=== PATIENT | female | born 1935 | race Caucasian/White ===

== ENCOUNTER 2016-05-27 21:05 | Emergency (ER) | payer MEDICARE ==
--- NOTE | 2016-05-27 22:01 | Emergency Department Record ---
History of Present Illness - General Chief Complaint: Cough Stated Complaint: COUGH Time Seen by Provider: 05/27/16 21:50 Source: Patient Mode of Arrival: Ambulatory - History of Present Illness Initial Comments: The patient was cough at the beginning of April of this year and had a chest xray. She got partially better, but then her cough returned 2 days ago along with one day of watery diarrhea, three episodes, today. She denies f,c, cp, ap , leg swelling. She has NOT had a flu shot this season. MD Complaint: Cough, Other (diarrhea) Onset/Timin -: Days(s) Severity: Moderate Severity scale (1-10): 8 Consistency: Intermittent - Related Data Home Medications Medication Instructions Recorded Confirmed Last Taken Carbamazepine [Tegretol] 100 mg PO DAILY #180 NS 04/20/16 05/27/16 05/26/16 Raloxifene HCl [Evista] 60 mg PO DAILY 05/27/16 05/27/16 05/26/16 Allergies Allergy/AdvReac Type Severity Reaction Status Date / Time No Known Drug Allergies Allergy Verified 05/27/16 21:20 Travel Screening - Travel/Exposure Within Last 30 Days Have you traveled within the last 30 days?: No - Travel/Exposure Within Last Year Have you traveled outside the [place] in the last year?: No - Additonal Travel Details Have you been exposed to anyone with a communicable illness?: No - Travel Symptoms Symptom Screening: None Review of Systems Reviewed: No additional complaints except as noted below Constitutional: Reports: As per HPI. Denies: Chills, Fever, Malaise, Night sweats, Weakness, Weight change Eyes: Reports: As per HPI. Denies: Eye discharge, Eye pain, Photophobia, Vision change ENT: Reports: As per HPI. Denies: Congestion, Dental pain, Ear pain, Epistaxis , Hearing loss, Throat pain Respiratory: Reports: As per HPI. Denies: Cough, Dyspnea, Hemoptysis, Stridor, Wheezes Cardiovascular: Reports: As per HPI. Denies: Arrhythmia, Chest pain, Dyspnea on exertion, Edema, Murmurs, Orthopnea, Palpitations, Paroxysmal nocturnal dyspnea, Rheumatic Fever, Syncope Endocrine: Reports: As per HPI. Denies: Fatigue, Heat or cold intolerance, Polydipsia, Polyuria Gastrointestinal: Reports: As per HPI. Denies: Abdominal pain, Constipation, Diarrhea, Hematemesis, Hematochezia, Melena, Nausea, Vomiting Genitourinary: Reports: As per HPI. Denies: Abnormal menses, Discharge, Dyspareunia, Dysuria, Frequency, Hematuria, Incontinence, Retention, Urgency Musculoskeletal: Reports: As per HPI. Denies: Arthralgia, Back pain, Gout, Joint swelling, Myalgia, Neck pain Skin: Reports: As per HPI. Denies: Bruising, Change in color, Change in hair/ nails, Lesions, Pruritus, Rash Neurological: Reports: As per HPI. Denies: Abnormal gait, Confusion, Headache, Numbness, Paresthesias, Seizure, Tingling, Tremors, Vertigo, Weakness Psychiatric: Reports: As per HPI. Denies: Anxiety, Auditory hallucinations, Depression, Homicidal thoughts, Suicidal thoughts, Visual hallucinations Hematological/Lymphatic: Reports: As per HPI. 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 - GI Hx GI Disorders: No - Hx Genitourinary Disorders: No - ENDOCRINE Hx Endocrine Disorders: No - MUSCULOSKELETAL Hx Musculoskeletal Disorders: Yes Hx Osteoporosis: Yes - PSYCH Hx Psych Problems: No - HEMATOLOGY/ONCOLOGY Hx Hematology/Oncology Disorders: No Family Medical History Any Significant Family History?: No Physical Exam - General General Appearance: Alert, Oriented x3, Cooperative, No acute distress - Head Head exam: Normal inspection - Eye Eye exam: Normal appearance, PERRL Pupils: Normal accommodation - ENT ENT exam: Normal exam, Mucous membranes moist, Normal external ear exam, Normal orophraynx, TM's normal bilaterally Ear exam: Normal external inspection. negative: External canal tenderness Nasal Exam: Normal inspection. negative: Discharge, Sinus tenderness Mouth exam: Normal external inspection, Tongue normal Teeth exam: Normal inspection. negative: Dental caries Throat exam: Normal inspection. negative: Tonsillar erythema, Tonsillar exudate - Neck Neck exam: Normal inspection, Full ROM. negative: Tenderness - Respiratory Respiratory exam: Normal lung sounds bilaterally, Rhonchi (coarse breath sounds with coghing episodes; ). negative: Respiratory distress - Cardiovascular Cardiovascular Exam: Regular rate, Normal rhythm, Normal heart sounds. negative : JVD - GI/Abdominal GI/Abdominal exam: Soft, Normal bowel sounds. negative: Tenderness - Rectal Rectal exam: Deferred - exam: Deferred - Extremities Extremities exam: Normal inspection, Full ROM, Normal capillary refill. negative: Calf tenderness, Pedal edema, Tenderness - Back Back exam: Reports: Normal inspection, Full ROM. Denies: Muscle spasm, Rash noted, Tenderness - Neurological Neurological exam: Alert, Normal gait, Oriented X3, Reflexes normal - Psychiatric Psychiatric exam: Normal affect, Normal mood - Skin Skin exam: Dry, Intact, Normal color, Warm Course Vital Signs 05/27/16 21:23 Temperature 98.5 F Pulse Rate 91 H Respiratory 20 Rate Blood Pressure 194/86 Pulse Ox 94 L - Reevaluation(s) Reevaluation #1: Reviewed old CXR report from 04-20-16 which showed no acute changes; chronic borderline CMG, tortuous aorta and linear scarring left lung base as before. Ca granuloma as before inferior right lung base. 05/27/16 22:12 Reevaluation #2: All studies normal, flu panel negative. CXR: Hyperinflation changes consistent with COPD changes, no acute abnormality, chronic unchanged granulomas as before. Per radiologist. 05/27/16 23:02 Medical Decision Making - Management Options MDM Management: No Additional Work-up Planned - Data Complexity MDM Data: Labs Ordered and/or Reviewed, X-Ray Ordered and/or Reviewed - Lab Data Result diagrams: 05/27/16 22:39 05/27/16 22:39 Disposition Disposition: Discharge Clinical Impression: Viral bronchitis Disposition: Home, Self-Care Condition: (1) Good Instructions: Cold Symptoms (ED) Additional Instructions: Vaporizer at bedside. Benadryl Elixir 25 mg to help with sleep at night if needed. Tylenol or ibuprofen as directed as needed for pain or fever. Throat lozenges, sprays and frequent sips of water during the day. Follow up with PCP next week as needed. Forms: Patient Portal Access
[2016-05-27] MEDS ORDERED: 0.9 % SODIUM CHLORIDE 1,000 ML BAG IV ONE (22:08)
[2016-05-27 22:35] LABS: INFLUENZA A NEGATIVE (NEGATIVE); INFLUENZA B NEGATIVE (NEGATIVE)
[2016-05-27 22:50] LABS: HEMATOCRIT 37.4 % (35.0-47.0); HEMOGLOBIN 12.6 gm/dl (11.6-16.0); MEAN CELL VOLUME 94.4 fl (81-97); MEAN CORPUSCULAR HEMOGLOBIN 31.8 pg (27-33); MEAN CORPUSCULAR HGB CONC 33.7 g/dl (32-36); MEAN PLATELET VOLUME 9.7 fl (7.4-10.4); PLATELET COUNT 118 K/uL (130-400); RED BLOOD COUNT 3.96 M/uL (3.80-5.40); RED CELL DISTRIBUTION WIDTH 12.4 % (11.5-14.5); WHITE BLOOD COUNT W/O DIFF 4.4 K/uL (4.2-12.2)
[2016-05-27 22:57] LABS: ALBUMIN 3.9 gm/dL (3.5-5.0); ALKALINE PHOSPHATASE 70 U/L (38-126); ALT/SGPT 28 U/L (9-52); ANION GAP 8.1 (7-16); AST/SGOT 26 U/L (14-36); BILIRUBIN,TOTAL 0.38 mg/dL (0.2-1.3); BLOOD UREA NITROGEN 9 mg/dL (7-17); CARBON DIOXIDE 27.9 mmol/L (22-30); CREATININE 0.7 mg/dL (0.52-1.04); EST GLOMERULAR FILTRATION RATE > 60 ml/min; GLUCOSE,RANDOM 92 mg/dL (70-110); LIPASE 67 U/L (23-300); TOTAL PROTEIN 6.8 gm/dL (6.3-8.2)
[2016-05-27] MEDS ORDERED: POTASSIUM CHLORIDE 20 MEQ TABLET PO ONE (23:01)
== END 2016-05-27 23:25 | disposition home or self-care (01) ==
LOC: ER 21:05
DX: J20.8 Acute bronchitis due to other specified organisms (principal); R19.7 Diarrhea, unspecified; J44.9 Chronic obstructive pulmonary disease, unspecified
CPT/HCPCS: 71020; 80048; 80076; 83690; 85027; 87400; 99284; J7030